=== PATIENT | female | born 1955 | race Caucasian/White ===

== ENCOUNTER → 2016-11-03 | Outpatient (CLI) | payer OTHER ==
[~2016-11-03] VITALS: Ht 160 cm; Wt 79.6 kg
[~2016-11-03] MED LIST: 5-HTP100 MG PO; APAP500 PO; ARMOUR THYROID30 M1 PO; ATACAND16 MG PO; AXERT12.5 MG PO; BENTYL 10 MG CA10 M1 PO; BIOTIN1000 MCG PO; CALCIUM WITH M1 EACH PO; CARISOPRODOL 3350 MG PO; COENZYME Q-10200 MG PO; CYANOCOBAL1000 MCG/1 IM; ESTRADIOL 1 MG T1 M1 PO; IODORAL PO; NEPHROCAPS SOFT1 CAP PO; PROMETRIUM200 MG PO; TESTOSTERONE TOP; VITAMIN D1000 UNI1 PO; VITAMINC500 PO; [UNRECOGNIZED DRUG - OTHER] PO
[2016-11-03 15:19] VITALS: BP 117/87
== END | disposition home or self-care (01) ==
LOC: PAIN 06:49
DX: M54.16 Radiculopathy, lumbar region (principal); M43.16 Spondylolisthesis, lumbar region

== ENCOUNTER → 2016-11-27 | Outpatient (CLI) | payer OTHER, MEDICARE ==
[~2016-11-27] VITALS: Ht 160 cm; Wt 77.6 kg
--- NOTE | ~2016-11-27 | HPC ---
[facility] [address] [place] [address] PAIN MANAGEMENT CONSULTATION Name: ANDRES GARNER Room #: REG SAMSON Jessica.#: [id number] Admission: 11/27/16 Attend Phys: Femi Kennedy MD Discharge: Date of : 51 Report #: [id number] THIS REPORT FOR: //name// CC: Kevin Kennedy DATE OF SERVICE: 11/27/2016 CHIEF COMPLAINT: Low back pain with radiculopathy. The patient returns to the pain clinic today for another epidural injection. When I first saw her in 2015, we gave her 2 injections one month apart. She then had nearly 6 months of excellent pain relief. I gave her an injection on 11/03/2016 and she again reports that she has had good response, but not complete. Her pain reduced by 50% or more and it has been sustained. Nonetheless, she scores it as 4-5 and it flares with lifting, sitting, standing and lying down, worse at night. We decided today that we will repeat a second injection. MEDICATIONS: Reviewed and reconciled. Previous injection x-rays which have been so helpful, reviewed. PHYSICAL EXAMINATION: Pleasant, alert and oriented, moves from a sitting to standing position, ambulates without difficulty. She has positive straight leg raising noted on the left that radiates into the buttock and left thigh. She also has some groin pain. Blood pressure is 129/93, heart rate is 99, BMI is 30.3. Review of her 2009 x-rays may not be all that helpful; however, we do know that at that time, her primary finding was an L4-L5 anterolisthesis with facet hypertrophic changes and ligamentum flavum changes resulting in bilateral neural foramina. It is at that level which I have been injecting her. IMPRESSION: Anterolisthesis of L4 on L5, chronic with recurring lumbar radiculopathy. PLAN: Epidural steroid injection under fluoroscopic guidance. PROCEDURE: She was taken to fluoroscopic suite for treatment, placed prone, skin prepped with ChloraPrep, skin anesthetized over the L4-L5 interspace. A 20-gauge Tuohy epidural needle advanced in the epidural space with lots of resistance. No blood or CSF was aspirated. 1 mL of Omnipaque injected. Good spread of dye observed in the epidural space followed by 3 mL of 0.5% lidocaine. She tolerated the procedure well and was observed for [address] [place] [address] PAIN MANAGEMENT CONSULTATION Name: ANDRES GARNER Room #: REG SAMSON Lamas#: [id number] Admission: 11/27/16 Attend Phys: Femi Kennedy MD Discharge: Date of : 51 Report #: [id number] discharged. Followup visit as needed. By: [id number] Femi Kennedy MD /nt
[2016-11-27 13:51] VITALS: BP 129/93
== END | disposition home or self-care (01) ==
LOC: PAIN 07:23
DX: M54.16 Radiculopathy, lumbar region (principal); M43.16 Spondylolisthesis, lumbar region; Z68.30 Body mass index [BMI] 30.0-30.9, adult

== ENCOUNTER → 2017-03-06 | Outpatient (CLI) | payer OTHER, MEDICARE | LOC: MRI 07:09 | DX: M47.896 Other spondylosis, lumbar region (principal); Z91.81 History of falling ==